=== PATIENT | female | born 1970 | race Caucasian/White ===

== ENCOUNTER 2019-03-11 14:37 | Emergency (ER) | payer OTHER ==
[~2019-03-11] VITALS: Ht 175.3 cm; Wt 113.2 kg
--- OUTSIDE RECORDS SUMMARY | 2019-03-11 14:39 | XMS REPORT | Summary of Care ---
Author Author TOM MOORE M.D. Organization Unknown Address Unknown Phone Unavailable Care Team Providers Care Logistics Technician Name Role Phone TOM MOORE M.D. Unavailable Unavailable Tom Moore MD Unavailable Unavailable Unavailable Unavailable Functional Status Name Dates Details Functional status health issues are not documented Status: Name Dates Details Cognitive status health issues are not documented Status: Problems Name Dates Details Lateral epicondylitis of right elbow (726.32, M77.11) Status: Active Partial tear subscapularis tendon, right, initial encounter (840.5, S43.81XA) Status: Active Medications Name Dates Details Meloxicam 15 MG Oral Tablet TAKE 1 TABLET DAILY. Quantity: 30 MILLIE Young, TOM * Start : 24-Apr-2018 Active Meloxicam 15 MG Oral Tablet TAKE 1 TABLET DAILY NEEDED. * Quantity: 30 Refills: 1 MILLIE Young, TOM * Start : 08-Sep-2018 Active Allergies and Adverse Reactions Name Dates Details Allergy history not documented Status: Procedures Procedure Dates Details MR Shoulder wo contrast [id number] Date: 01-Sep-2018 Immunization Name Dates Details Immunizations not documented Social History Name Dates Details Unknown if ever smoked Vital Signs Date Test Result Details No Known Vitals to report Results Date Description Value Details [id number] [U] XRAY ELBOW MIN 3 VWS RIGHT [id number] XR ELBOW MIN 3 VWS RIGHT Images acquired, not reported on this accession number. [id number] [U] XRAY SHOULDER MIN 2 VWS RIGHT [id number] XR SHOULDER MIN 2 VWS RIGHT Images acquired, not reported on this accession number. Plan of Care Name Dates Details Planned Observations Planned Goals not documented Planned Encounters Appointment; TOM MOORE M.D. On: 13-Sep-2018 11:15 Interventions Provided Medication Changes* Meloxicam 15 MG Oral Tablet - Start Labs/Procedures/Imaging* MR Shoulder wo contrast [id number]; To Be Done: 01 Sep 2018 * [U] XRAY ELBOW MIN 3 VWS RIGHT [id number]; Done: 01 Sep 2018 * [U] XRAY SHOULDER MIN 2 VWS RIGHT [id number]; Done: 01 Sep 2018 Instructions Name Dates Details Instructions not documented Encounters Appointment; TOM MOORE M.D. Encounter Diagnosis: Problem not documented On: 24-Apr-2018 11:00 Appointment; TOM MOORE M.D. Encounter Diagnosis: Problem not documented On: 26-May-2018 9:00 Appointment; TOM MOORE M.D. Encounter Diagnosis: Problem not documented On: 01-Sep-2018 14:00
[2019-03-11] MEDS ORDERED: SODIUM CHLORIDE 0.9% 1000ML 1,000 ML IV SCH (15:15)
[2019-03-11] MEDS ORDERED: SODIUM CHLORIDE 0.9% 1000ML 1,000 ML ONE (15:34)
--- NOTE | 2019-03-11 15:49 | Diagnostic Imaging Report ---
History: Dizziness, blurred vision Comparison studies: None Technique: Axial images were obtained from the skull base to the vertex. Coronal and sagittal reconstructions obtained from the axial data. Dose modulation, iterative reconstruction, and/or weight based adjustment of the mA/kV was utilized to reduce the radiation dose to as low as reasonably achievable. Intravenous contrast: None Findings: Scalp/skull: No abnormalities. No fractures, blastic or lytic lesions. Extra-axial spaces: No masses. No fluid collections. Brain sulci: Appropriate for age. Ventricles: Normal in size and configuration. No hydrocephalus. Parenchyma: No abnormal densities. No masses, hemorrhage, acute or chronic cortical vascular insults. Sellar/suprasellar region: No abnormalities Craniocervical junction: Patent foramen magnum. No Chiari one malformation. Incidental findings: None. IMPRESSION: No abnormalities. Signed by: Dr. Otis Lima M.D. on 03/11/2019 3:46 PM
[2019-03-11] MEDS ORDERED: MECLIZINE HCL12.5 MG PO (15:58)
[2019-03-11 17:06] VITALS: BP 100/74
== END 2019-03-11 16:22 | disposition home or self-care (01) ==
LOC: FSED 14:37
DX: R42 Dizziness and giddiness (principal)
CPT/HCPCS: 70450; 80053; 81003; 85025; 93005; 99284; J7030

== ENCOUNTER 2019-05-03 17:13 | Emergency (ER) | payer OTHER ==
[~2019-05-03] VITALS: Ht 175.3 cm; Wt 112.9 kg
[~2019-05-03 17:13] MED LIST: MECLIZINE HCL12.5 MG PO
--- OUTSIDE RECORDS SUMMARY | 2019-05-03 17:15 | XMS REPORT ---
Author Author [facility] [place] Address Unknown Phone Unavailable Care Team Providers Care Line Service Supervisor Name Role Phone Brittany CHIANG Unavailable Unavailable Problems This patient has no known problems. Allergies, Adverse Reactions, Alerts This patient has no known allergies or adverse reactions. Medications This patient has no known medications. Results Test Description Test Time Test Comments Text Results Atomic Results Result Comments CT BRAIN WO-HOPD 2019-03-11 15:45:00 [place] [address] Patient Name: CURLY FORBES MR #: [id number] : 1970 Age/Sex: 48/F Req #: [id number] [facility] Physician: Ordered by: BARRY CHIANG MD Report #: [id number] Location: [facility] Room/Bed: Procedure: [id number] HOPD/CT BRAIN WO-HOPD Exam Date: 03/11/19 Exam Time: 1522 REPORT STATUS: Signed History: Dizziness, blurred vision Comparison studies: None Technique: Axial images were obtained from the skull base to the vertex. Coronal and sagittal reconstructions obtained from the axial data. Dose modulation, iterative reconstruction, and/or weight based adjustment of the mA/kV was utilized to reduce the radiation dose to as low as reasonably achievable. Intravenous contrast: None Findings: Scalp/skull: No abnormalities. No fractures, blastic or lytic lesions. Extra-axial spaces: No masses. No fluid collections. Brain sulci: Appropriate for age. Ventricles: Normal in size and configuration. No hydrocephalus. Parenchyma: No abnormal densities. No masses, hemorrhage, acute or chronic cortical vascular insults. Sellar/suprasellar region: No abnormalities Craniocervical junction: Patent foramen magnum. No Chiari one malformation. Incidental findings: None. IMPRESSION: No abnormalities. Signed by: Dr. Otis Lmia M.D. on 03/11/2019 3:46 PM Dictated By: OTIS LIMA MD, MD [id number] Transcribed By: BUNNY on 03/11/19 1549 COPY TO: BARRY CHIANG MD
[2019-05-03] MEDS ORDERED: KETOROLAC TROMETHAMINE 60 MG/2 ML VIAL IM ONE (18:00)
[2019-05-03] MEDS ORDERED: DEXAMETHASONE SOD PHOS 10 MG/1 ML VIAL IM ONE (18:00)
--- NOTE | 2019-05-03 18:15 | Diagnostic Imaging Report ---
LEFT HIP - 3 Image(s) HISTORY: Dense seen, heard pop, hip pain COMPARISON: None available. FINDINGS: Bones: Some of the osseous structures are partially obscured by stool and overlying bowel gas. No acute displaced fracture. No aggressive osseous lesion. Joints: Osseous alignment is within normal limits and the joint spaces are well-maintained. Soft tissues: Nonspecific calcific densities project at the pelvis, the largest 1.6 cm in greatest dimension projects at the left hemipelvis. IMPRESSION: No acute radiographic abnormality. Signed by: Dr. Jose Ramon Castellon D.O., M.M.M. on 05/03/2019 6:12 PM
[2019-05-03] MEDS ORDERED: DEXAMETHASONE SOD PHOS 10 MG/1 ML VIAL ONE (18:19)
[2019-05-03] MEDS ORDERED: KETOROLAC TROMETHAMINE 60 MG/2 ML VIAL ONE (18:19)
[2019-05-03 18:40] VITALS: BP 121/77
== END 2019-05-03 18:44 | disposition home or self-care (01) ==
LOC: FSED 17:13
DX: S73.112A Iliofemoral ligament sprain of left hip, initial encounter (principal); X50.1XXA Overexertion from prolonged static or awkward postures, initial encounter; Y92.69 Other specified industrial and construction area as the place of occurrence of the external cause; Y99.0 Civilian activity done for income or pay; F17.200 Nicotine dependence, unspecified, uncomplicated
CPT/HCPCS: 73502; 99283; J1100; J1885